=== PATIENT | male | born 1995 | race American Indian/Alaskan Native ===

== ENCOUNTER 2017-12-07 12:49 | Emergency (ER) | payer MEDICAID, OTHER ==
[2017-12-07 13:43] VITALS: BP 106/67
== END 2017-12-07 17:37 | disposition left against medical advice (07) ==
LOC: ED 12:49
DX: M79.605 Pain in left leg (principal); Z53.21 Procedure and treatment not carried out due to patient leaving prior to being seen by health care provider

== ENCOUNTER 2018-10-16 16:54 | Emergency (ER) | payer OTHER ==
--- NOTE | 2018-10-16 17:41 | Emergency Department Report ---
Blank Doc - Documentation Documentation: This is a 23-year-old male that presents with left upper groin pain. Denies any urinary symptoms. This initial assessment/diagnostic orders/clinical plan/treatment(s) is/are subject to change based on patient's health status, clinical progression and re- assessment by fellow clinical providers in the ED. Further treatment and workup at subsequent clinical providers discretion. Patient/guardians urged not to elope from the ED as their condition may be serious if not clinically assessed and managed. Initial orders include: 1- Patient sent to [facility] for further evaluation and treatment 2- UA
[2018-10-16 18:41] LABS: Bilirubin,Urine NEG (Negative); Blood,Urine NEG (Negative); Color,Urine Yellow (Yellow); Mucus,Urine 1+ /HPF; Protein,Urine <15 mg/dL mg/dL (Negative)
--- NOTE | 2018-10-16 21:02 | Emergency Department Report ---
ED Abdominal Pain HPI - General Chief Complaint: Abdominal Pain Stated Complaint: GROIN PAIN Time Seen by Provider: 10/16/18 17:40 Source: patient Mode of arrival: Ambulatory Limitations: No Limitations - History of Present Illness Initial Comments: 23-year-old -[place] male presents to the emergency room for complaint of pain to the left lower quadrant of abdomen that radiates down the leg. Patient denies any dysuria no hematuria or penile discharge. Patient denies any pain at this moment. Patient reports that the pain is intermittent sharp and stabbing. Patient reports that he took Aleve yesterday which helped. Patient reports the last time he had pain was yesterday last BM was yesterday. Patient reports pain is worse with lifting. MD Complaint: abdominal pain -: days(s) (5) Location: LLQ Radiation: LLQ Migration to: no migration Severity scale (0 -10): 0 Quality: stabbing, sharp Consistency: intermittent (no pain now) Worsens With: other (doing heavy objects) - Related Data Previous Rx's Medication Instructions Recorded Last Taken Type Ibuprofen [Motrin] 800 mg PO Q8H PRN #30 tablet 09/18/14 Unknown Rx Allergies Allergy/AdvReac Type Severity Reaction Status Date / Time No Known Allergies Allergy Unverified 09/18/14 12:52 ED Review of Systems ROS: Stated complaint: GROIN PAIN Other details as noted in HPI Comment: All other systems reviewed and negative ED Past Medical Hx - Past Medical History Previous Medical History?: Yes Hx Asthma: Yes - Surgical History Past Surgical History?: No - Social History Smoking Status: Current Every Day Smoker Substance Use Type: None - Medications Home Medications: Home Medications Medication Instructions Recorded Confirmed Last Taken Type Ibuprofen [Motrin] 800 mg PO Q8H PRN #30 tablet 09/18/14 Unknown Rx ED Physical Exam - General Limitations: No Limitations General appearance: alert, in no apparent distress - Head Head exam: Present: atraumatic, normocephalic - Eye Eye exam: Present: normal appearance - ENT ENT exam: Present: mucous membranes moist - Neck Neck exam: Present: normal inspection - Respiratory Respiratory exam: Present: normal lung sounds bilaterally. Absent: respiratory distress - Cardiovascular Cardiovascular Exam: Present: regular rate, normal rhythm. Absent: systolic murmur, diastolic murmur, rubs, gallop - GI/Abdominal GI/Abdominal exam: Present: soft, normal bowel sounds. Absent: distended, tenderness, guarding, rebound - exam: Present: normal inspection, circumcision. Absent: testicular tenderness, urethral discharge, scrotal swelling ED Course Vital Signs 10/16/18 17:40 Temperature 98.1 F Pulse Rate 54 L Respiratory 16 Rate Blood Pressure 95/44 O2 Sat by Pulse 100 Oximetry ED Medical Decision Making - Radiology Data Radiology results: report reviewed Patient: JOYCE SCHMITZ JR MR#: [id number] : 1995 Acct:[id number] Age/Sex: 23 / M ADM Date: 10/16/18 Loc: ED Attending Dr: Ordering Physician: HOANG LOMAS Date of Service: 10/16/18 Procedure(s): US testicular doppler comp Accession Number(s): [id number] cc: HOANG LOMAS PROCEDURE: US TESTICULAR DOPPLER COMP TECHNIQUE: Real-time thorne-scale and color flow Doppler sonography in multiple planes of the scrotum, testicles, and epididymes was performed. Velocity spectral waveform analysis and color Doppler imaging of the arterial inflow and venous outflow of the testicles was performed with image documentation. HISTORY: left testes tenderness and concern for hernia COMPARISONS: None . FINDINGS: RIGHT TESTICLE: Size: 4.5 x 2.1 x 3.4 cm . Appearance: Normal size and echotexture . Arterial blood flow: Normal spectral waveforms, flow velocities and color flow images.. Venous blood flow: Normal spectral waveforms and color flow images. Right epididymis: Normal size and echotexture . Hydrocele: None. LEFT TESTICLE Size: 4.6 x 2.1 x 3.1 cm . Appearance: Normal size and echotexture . Arterial blood flow: Normal spectral waveforms, flow velocities and color flow images.. Venous blood flow: Normal spectral waveforms and color flow images. Left epididymis: Normal size and echotexture . Hydrocele: Minimal degree is noted along the superior aspect. IMPRESSION: Minimal degree of fluid left tunical sac. Otherwise unremarkable study. This document is electronically signed by Reji Shah MD., October 16 2018 10:18:04 PM ET Transcribed By: [facility] [place]ictated By: REJI SHAH Electronically Authenticated By: REJI SHAH Signed Date/Time: 10/16/182219 DD/ 01 TD/TT: 10/16/182201 - Medical Decision Making Patient has been evaluated by this provider in [facility]. Testicular ultrasound shows normal examination. Discussed the patient needs to follow up with a primary care provider if his symptoms persist or gets worse. Next time patient currently has no pain. Critical care attestation.: If time is entered above; I have spent that time in minutes in the direct care of this critically ill patient, excluding procedure time. ED Disposition Clinical Impression: Pelvic pain in male Disposition: DC-01 TO HOME OR SELFCARE Is pt being admited?: No Does the pt Need Aspirin: No Condition: Stable Instructions: Chronic Pelvic Pain in Men (ED) Additional Instructions: You can take Tylenol and or Motrin or Aleve for pain management. It is very important for you to follow up with the primary care provider I have listed one below for your convenience. Referrals: DAGOBERTO STERN MD [Primary Care Provider] - 3-5 Days
--- NOTE | 2018-10-16 22:20 | Ultrasound Report ---
PROCEDURE: US TESTICULAR DOPPLER COMP TECHNIQUE: Real-time thorne-scale and color flow Doppler sonography in multiple planes of the scrotum, testicles, and epididymes was performed. Velocity spectral waveform analysis and color Doppler imagi ng of the arterial inflow and venous outflow of the testicles was performed with image documentation. HISTORY: left testes tenderness and concern for hernia COMPARISONS: None . FINDINGS: RIGHT TESTICLE: Size: 4.5 x 2.1 x 3.4 cm . Appearance: Normal size and echotexture . Arterial blood flow: Normal spectral waveforms, flow velocities and color flow images.. Venous blood flow: Normal spectral waveforms and color flow images. Right epididymis: Normal size and echotexture . Hydrocele: None. LEFT TESTICLE Size: 4.6 x 2.1 x 3.1 cm . Appearance: Normal size and echotexture . Arterial blood flow: Normal spectral waveforms, flow velocities and color flow images.. Venous blood flow: Normal spectral waveforms and color flow images. Left epididymis: Normal size and echotexture . Hydrocele: Minimal degree is noted along the superior aspect. IMPRESSION: Minimal degree of fluid left tunical sac. Otherwise unremarkable study. This document is electronically signed by Dex Shah MD., October 16 2018 10:18:04 PM ET
[2018-10-16 22:34] VITALS: BP 128/52
== END 2018-10-16 22:32 | disposition home or self-care (01) ==
LOC: ED 16:54
DX: R10.2 Pelvic and perineal pain (principal); J45.909 Unspecified asthma, uncomplicated; F17.200 Nicotine dependence, unspecified, uncomplicated
CPT/HCPCS: 81001; 93975